=== PATIENT | male | born 1935 | race Caucasian/White ===

== ENCOUNTER 2017-06-19 13:45 | Inpatient (IN) | payer OTHER ==
[~2017-06-19] VITALS: Ht 182.9 cm; Wt 98.4 kg
[~2017-06-19 13:45] MED LIST: Ascorbic Acid,Ester- PO; COUMADIN,JANTO2.5 MG PO; Cardizem PO; Cepacol Lozenge, Sor MM; Coumadin,Jantoven PO; Dulcolax PO; Folvite PO; Hydrodiuril,Oretic,E PO; MICRO-K10 ME1 PO; Micro-K,K-Tab,K-Dur, PO; Miralax, Glycolax PO; SENOKOT,SENN1 TABLET PO; Senokot S,Pericolace PO; TYLENOL REGULA325 MG PO; Theragran PO; Tylenol Regular Stre PO; Vicodin,Norco 5/325 PO; ZOFRAN4 MG PO
[2017-06-19 14:25] LABS: BASOPHIL (%) 0.7 % (0-1); BASOPHIL COUNT 0.1 K/uL (0-0.1); EOSINOPHIL COUNT 0.1 K/uL (0-0.3); HEMATOCRIT 45.5 % (38.0-50.0); IMMATURE GRANULOCYTE (%) 0.6 % (0.0-0.7); LYMPHOCYTE (%) 16.4 % (15-42); LYMPHOCYTE COUNT 1.9 K/uL (1.0-2.8); MCH 30.5 PG (29.0-34.0); MCV 92.5 FL (86-99); MONOCYTE (%) 7.4 % (3-12); MONOCYTE COUNT 0.9 K/uL (0-0.8); NEUTROPHIL (%) 73.9 % (45-76); NEUTROPHIL COUNT 8.5 K/uL (1.8-6.4); PLATELET COUNT 283 K/uL (156-360); RBC DIS.WIDTH-CV 13.5 % (11.8-14.6); RED BLOOD COUNT 4.92 M/uL (4.00-5.50); WHITE BLOOD COUNT 11.5 K/uL (4.1-10.2)
[2017-06-19 14:30] LABS: INTER. NORMALIZED RATIO 3.3
[2017-06-19 14:33] LABS: CHLORIDE 103 mEq/L (99-109); POTASSIUM 3.7 mEq/L (3.7-5.4); PTT 30.8 SEC (25-37); SODIUM 138 mEq/L (136-147)
[2017-06-19 14:35] LABS: GLUCOSE 169 mg/dL (70-99)
[2017-06-19 14:39] LABS: CREATININE 1.4 mg/dL (0.6-1.3); GFR ESTIMATE (CALCULATED) 52 mL/min/ (58.99-99999); UREA NITROGEN (BUN) 32 mg/dL (9-23)
[2017-06-19 14:46] LABS: TROP-I INTERPRETATION NEGATIVE; TROPONIN-I 0.06 ng/mL (0.0-0.30)
[2017-06-19 16:50] LABS: CREATINE KINASE 58 IU/L (1-294)
[2017-06-19 20:05] LABS: TROP-I INTERPRETATION NEGATIVE; TROPONIN-I 0.05 ng/mL (0.0-0.30)
[2017-06-19 21:09] VITALS: BP 119/91
== END 2017-06-19 21:00 | disposition short-term general hospital (02) | DRG 301 ==
LOC: EME 13:45 → EDOF 15:58 → ENRESERV 16:00 → CANRESERV 17:39 → EDOF 21:00
PROVIDERS: Emergency Medicine; Internal Medicine
DX: I71.2 Thoracic aortic aneurysm, without rupture (principal); R55 Syncope and collapse; R56.9 Unspecified convulsions; I10 Essential (primary) hypertension; Q05.9 Spina bifida, unspecified; I95.9 Hypotension, unspecified; R06.02 Shortness of breath; R07.9 Chest pain, unspecified; R11.2 Nausea with vomiting, unspecified; R41.82 Altered mental status, unspecified; R15.9 Full incontinence of feces; R32 Unspecified urinary incontinence; M48.00 Spinal stenosis, site unspecified; E78.5 Hyperlipidemia, unspecified; N40.0 Benign prostatic hyperplasia without lower urinary tract symptoms; F03.90 Unspecified dementia, unspecified severity, without behavioral disturbance, psychotic disturbance, mood disturbance, and anxiety; M19.90 Unspecified osteoarthritis, unspecified site; Z96.652 Presence of left artificial knee joint; Z86.718 Personal history of other venous thrombosis and embolism; Z79.01 Long term (current) use of anticoagulants
CPT/HCPCS: 70450; 70551; 71045; 71275; 80048; 81003; 82550; 82550 91; 83735; 84484; 85025; 85610; 85730; 87040; 93005; 99281; 99285; J1953; J2405; J7030; J7050